=== PATIENT | male | born 1940 | race Two or more races ===

== ENCOUNTER 2017-11-29 07:30 | Outpatient (CLI) | payer OTHER ==
[~2017-11-29 07:30] MED LIST: ATACAND4 MG PO; INTESTINEX1 CA1 PO; LEVAQUIN750 MG PO; NORVIR100 M1 PO; OXYC1TAB9 PO; PREZISTA800 MG PO; PROTONIX40 MG PO; TAMS0.4C PO; TIVICAY50 MG PO
== END 2017-11-29 08:40 | disposition home or self-care (01) ==
LOC: NUCLEAR 07:30
DX: I11.9 Hypertensive heart disease without heart failure (principal); R07.89 Other chest pain; R94.31 Abnormal electrocardiogram [ECG] [EKG]
CPT/HCPCS: 78452; 93017; A9505

== ENCOUNTER → 2017-12-12 | Outpatient (CLI) | payer OTHER | END | disposition home or self-care (01) | LOC: LAB 06:25 | DX: B20 Human immunodeficiency virus [HIV] disease (principal); C18.9 Malignant neoplasm of colon, unspecified ==

== ENCOUNTER → 2017-12-13 | Outpatient (CLI) | payer OTHER | END | disposition home or self-care (01) | LOC: PPH VACUNA 10:32 | DX: Z23 Encounter for immunization (principal) ==

== ENCOUNTER → 2017-12-27 | Outpatient (CLI) | payer OTHER | END | disposition home or self-care (01) | LOC: NUCLEAR 08:28 | DX: I20.1 Angina pectoris with documented spasm (principal) | CPT/HCPCS: 78452; 93017; A9500 ==

== ENCOUNTER 2018-01-10 10:42 | Outpatient (CLI) | payer OTHER | END 2018-01-10 10:50 | disposition home or self-care (01) | LOC: LAB 10:42 | DX: N39.0 Urinary tract infection, site not specified (principal) ==

== ENCOUNTER 2018-02-12 07:55 | Day surgery (SDC) | payer OTHER | END 2018-02-12 13:10 | disposition home or self-care (01) | LOC: AMB-ENDOS 07:55 | DX: K64.8 Other hemorrhoids (principal) ==

== ENCOUNTER 2018-09-03 09:16 | Outpatient (CLI) | payer OTHER | END 2018-09-03 09:37 | disposition home or self-care (01) | LOC: LAB 09:16 | DX: D50.0 Iron deficiency anemia secondary to blood loss (chronic) (principal); E78.2 Mixed hyperlipidemia; E03.8 Other specified hypothyroidism; N39.0 Urinary tract infection, site not specified; Z12.11 Encounter for screening for malignant neoplasm of colon; K62.5 Hemorrhage of anus and rectum; R10.84 Generalized abdominal pain; E55.9 Vitamin D deficiency, unspecified; E11.29 Type 2 diabetes mellitus with other diabetic kidney complication; E51.8 Other manifestations of thiamine deficiency ==

== ENCOUNTER 2019-02-04 08:27 | Outpatient (CLI) | payer OTHER | END 2019-02-04 08:53 | disposition home or self-care (01) | LOC: LAB 08:27 | DX: B20 Human immunodeficiency virus [HIV] disease (principal); Z11.4 Encounter for screening for human immunodeficiency virus [HIV]; D64.89 Other specified anemias; I10 Essential (primary) hypertension; E11.9 Type 2 diabetes mellitus without complications; E78.00 Pure hypercholesterolemia, unspecified; N39.0 Urinary tract infection, site not specified; E03.8 Other specified hypothyroidism; E11.69 Type 2 diabetes mellitus with other specified complication; E11.29 Type 2 diabetes mellitus with other diabetic kidney complication; N40.0 Benign prostatic hyperplasia without lower urinary tract symptoms; Z12.31 Encounter for screening mammogram for malignant neoplasm of breast; R19.5 Other fecal abnormalities; E55.9 Vitamin D deficiency, unspecified ==

== ENCOUNTER 2019-02-13 10:36 | Outpatient (CLI) | payer OTHER | END 2019-02-13 11:01 | disposition home or self-care (01) | LOC: NUCLEAR 10:36 | DX: R07.89 Other chest pain (principal); I20.9 Angina pectoris, unspecified | CPT/HCPCS: 78452; 93017; A9500; J0153 ==

== ENCOUNTER 2019-04-02 14:02 | Outpatient (CLI) | payer OTHER | END 2019-04-02 14:10 | disposition home or self-care (01) | LOC: RAD 14:02 | DX: S87.01XA Crushing injury of right knee, initial encounter (principal) ==

== ENCOUNTER 2019-04-07 08:58 | Outpatient (CLI) | payer OTHER | END 2019-04-07 09:13 | disposition home or self-care (01) | LOC: NUCLEAR 08:58 | DX: K81.1 Chronic cholecystitis (principal) | CPT/HCPCS: 78227; A9537 ==

== ENCOUNTER 2020-04-07 11:45 | Outpatient (CLI) | payer OTHER | END 2020-04-07 13:11 | disposition home or self-care (01) | LOC: LAB 11:45 | PROVIDERS: ATTEND Internal Medicine | DX: E11.69 Type 2 diabetes mellitus with other specified complication (principal); N39.0 Urinary tract infection, site not specified; E03.8 Other specified hypothyroidism; E78.00 Pure hypercholesterolemia, unspecified; R19.5 Other fecal abnormalities; N40.0 Benign prostatic hyperplasia without lower urinary tract symptoms; B20 Human immunodeficiency virus [HIV] disease ==

== ENCOUNTER 2021-04-13 07:51 | Outpatient (CLI) | payer OTHER | END 2021-04-13 08:13 | disposition home or self-care (01) | LOC: LAB 07:51 | PROVIDERS: ATTEND Internal Medicine | DX: D50.0 Iron deficiency anemia secondary to blood loss (chronic) (principal); N39.0 Urinary tract infection, site not specified; E11.69 Type 2 diabetes mellitus with other specified complication; E78.00 Pure hypercholesterolemia, unspecified; E03.8 Other specified hypothyroidism; B20 Human immunodeficiency virus [HIV] disease; N40.1 Benign prostatic hyperplasia with lower urinary tract symptoms ==

== ENCOUNTER 2022-01-11 10:28 | Outpatient (CLI) | payer OTHER | END 2022-01-11 13:22 | disposition home or self-care (01) | LOC: LAB 10:28 | PROVIDERS: ATTEND Internal Medicine | DX: D48.9 Neoplasm of uncertain behavior, unspecified (principal); M15.0 Primary generalized (osteo)arthritis; D64.9 Anemia, unspecified; E11.9 Type 2 diabetes mellitus without complications; E78.00 Pure hypercholesterolemia, unspecified; N39.0 Urinary tract infection, site not specified; E03.8 Other specified hypothyroidism; R80.8 Other proteinuria; Z12.11 Encounter for screening for malignant neoplasm of colon; R19.5 Other fecal abnormalities ==

== ENCOUNTER 2022-12-21 12:50 | Outpatient (CLI) | payer OTHER | END 2022-12-21 13:40 | disposition home or self-care (01) | LOC: LAB 12:50 | PROVIDERS: ATTEND Internal Medicine | DX: D64.9 Anemia, unspecified (principal); E11.9 Type 2 diabetes mellitus without complications; E78.00 Pure hypercholesterolemia, unspecified; E03.8 Other specified hypothyroidism; N39.0 Urinary tract infection, site not specified; R19.5 Other fecal abnormalities; Z12.11 Encounter for screening for malignant neoplasm of colon; E55.9 Vitamin D deficiency, unspecified; N40.0 Benign prostatic hyperplasia without lower urinary tract symptoms ==

== ENCOUNTER 2022-12-27 09:59 | Outpatient (CLI) | payer OTHER | END 2022-12-27 10:11 | disposition home or self-care (01) | LOC: LAB 09:59 | PROVIDERS: ATTEND Internal Medicine | DX: B20 Human immunodeficiency virus [HIV] disease (principal); R53.1 Weakness ==

== ENCOUNTER 2023-01-01 09:44 | Outpatient (CLI) | payer OTHER | END 2023-01-01 09:46 | disposition home or self-care (01) | LOC: TOM 09:44 | PROVIDERS: ATTEND Internal Medicine | DX: R10.0 Acute abdomen (principal) ==

== ENCOUNTER 2024-06-25 09:49 | Outpatient (CLI) | payer OTHER ==
[2024-06-25 10:54] LABS: HEMATOCRIT 47.5 % (39.0-48.0); HEMOGLOBIN 16.2 g/dL (13-16.00); MEAN CELL VOLUME 90.2 fL (80.0-100.00); MEAN CORPUSCULAR HEMOGLOBIN 30.8 pg (27.00-32.0); MEAN CORPUSCULAR HGB CONC 34.1 g/dl (32.0-36.0); PLATELET COUNT 248 K/uL (150-450); RED BLOOD COUNT 5.27 M/uL (4.00-6.00); RED CELL DISTRIBUTION WIDTH 14.4 % (11.5-14.5)
[2024-06-25 11:13] LABS: PH,URINE 5.5 (5.0-8.0); URINE APPEARANCE Clear; URINE BILIRRUBIN Negative (NEGATIVE); URINE BLOOD Negative; URINE COLOR Yellow; URINE KETONE Negative (NEGATIVE); URINE LEUKOCYTE Negative; URINE NITRATE Negative; URINE PROTEIN 30 (NEGATIVE); URINE UROBILINOGEN 0.2 E.U./dl
[2024-06-25 11:17] LABS: URINE BACTERIA 229.3 uL (0.0-1933); URINE EPITHELIAL CELLS 14.9 uL (0.0-38.8); URINE WBC 10.3 uL (0.0-23.2)
[2024-06-25 11:40] LABS: URINE GLUCOSE 250 MG/DL (NEGATIVE); URINE RBC 1.5 uL (0.0-20.8)
[2024-06-25 11:41] LABS: URINE CAST 0.61 uL (0.0-1.40)
[2024-06-25 11:44] LABS: ALBUMIN 4.2 gm/dL (3.4-5.0); BILIRUBIN TOTAL 0.62 mg/dL (0.3-1.2); CALCIUM 9.8 mg/dL (8.5-10.1); CHOL HDL RATIO 3.8 (0-5.0); CREATININE SERUM 1.32 mg/dL (0.70-1.30); GFR 52.06; GLOBULINA 4.3 G/DL (2.4-3.5); POTASSIUM 4.54 mEq/L (3.5-5.1); TOTAL PROTEIN 8.5 gm/dL (6.4-8.2); TSH 1.29 uIU/mL (0.358-3.74)
== END 2024-06-25 10:00 | disposition home or self-care (01) ==
LOC: LAB 09:49
PROVIDERS: ATTEND Internal Medicine
DX: D64.9 Anemia, unspecified (principal); E11.9 Type 2 diabetes mellitus without complications; E78.00 Pure hypercholesterolemia, unspecified; N39.0 Urinary tract infection, site not specified; E03.8 Other specified hypothyroidism; Z12.11 Encounter for screening for malignant neoplasm of colon; E55.9 Vitamin D deficiency, unspecified

== ENCOUNTER 2024-08-19 21:07 | Emergency (ER) | payer OTHER ==
[~2024-08-19] VITALS: Ht 177.8 cm; Wt 63.5 kg
[2024-08-19] MEDS ORDERED: 0.9 % SODIUM CHLORIDE 1,000 ML IV SCH (22:00)
[2024-08-19 23:23] LABS: PH,URINE 5.5 (5.0-8.0); URINE APPEARANCE Cloudy; URINE BILIRRUBIN Negative (NEGATIVE); URINE BLOOD Moderate; URINE COLOR Dark Yellow; URINE GLUCOSE Negative (NEGATIVE); URINE KETONE Trace (NEGATIVE); URINE LEUKOCYTE Negative; URINE NITRATE Negative; URINE UROBILINOGEN 0.2 E.U./dl
[2024-08-19 23:29] LABS: URINE BACTERIA 15.1 uL (0.0-1933); URINE CAST 5.64 uL (0.0-1.40); URINE WBC 9.5 uL (0.0-23.2)
[2024-08-19 23:31] LABS: HEMATOCRIT 49.7 % (39.0-48.0); MEAN CELL VOLUME 90.1 fL (80.0-100.00); MEAN CORPUSCULAR HEMOGLOBIN 30.8 pg (27.00-32.0); MEAN CORPUSCULAR HGB CONC 34.2 g/dl (32.0-36.0); PLATELET COUNT 132 K/uL (150-450); RED BLOOD COUNT 5.52 M/uL (4.00-6.00); RED CELL DISTRIBUTION WIDTH 14.5 % (11.5-14.5)
[2024-08-19 23:41] LABS: CALCIUM 9.3 mg/dL (8.5-10.1); CREATININE SERUM 2.37 mg/dL (0.70-1.30); GFR 26.43; POTASSIUM 4.54 mEq/L (3.5-5.1)
[2024-08-19 23:49] LABS: URINE PROTEIN 100 (NEGATIVE); URINE RBC 1.3 uL (0.0-20.8)
[2024-08-20] MEDS ORDERED: FAMOTIDINE/PF 20 MG/2 ML VIAL IV PUSH STA (02:28)
[2024-08-20] MEDS ORDERED: 0.9 % SODIUM CHLORIDE 1,000 ML IV ONE (07:00)
[2024-08-20 08:08] LABS: HEMATOCRIT 48.3 % (39.0-48.0); HEMOGLOBIN 16.5 g/dL (13-16.00); MEAN CELL VOLUME 90.1 fL (80.0-100.00); MEAN CORPUSCULAR HEMOGLOBIN 30.8 pg (27.00-32.0); MEAN CORPUSCULAR HGB CONC 34.2 g/dl (32.0-36.0); PLATELET COUNT 134 K/uL (150-450); RED BLOOD COUNT 5.36 M/uL (4.00-6.00); RED CELL DISTRIBUTION WIDTH 14.2 % (11.5-14.5)
[2024-08-20 11:24] LABS: ALBUMIN 3.8 gm/dL (3.4-5.0); BILIRUBIN TOTAL 0.57 mg/dL (0.3-1.2); CALCIUM 8.9 mg/dL (8.5-10.1); CREATININE SERUM 1.69 mg/dL (0.70-1.30); GFR 39.04; POTASSIUM 4.14 mEq/L (3.5-5.1); TOTAL PROTEIN 7.8 gm/dL (6.4-8.2)
== END 2024-08-20 12:42 | disposition home or self-care (01) ==
LOC: ER 21:07
PROVIDERS: Emergency Medicine; General Practice
DX: R53.1 Weakness (principal); Z88.0 Allergy status to penicillin; I10 Essential (primary) hypertension; E86.0 Dehydration; Z20.822 Contact with and (suspected) exposure to COVID-19
CPT/HCPCS: 36415; 71045; 96365; 96366; 99283; J3490; J7030

== ENCOUNTER → 2024-08-27 09:18 | Outpatient (CLI) | payer OTHER | END | disposition home or self-care (01) | LOC: LAB 09:18 | PROVIDERS: ATTEND Internal Medicine | DX: E29.1 Testicular hypofunction (principal); B20 Human immunodeficiency virus [HIV] disease ==

== ENCOUNTER 2024-09-09 14:12 | Outpatient (CLI) | payer OTHER ==
[2024-09-09 15:05] LABS: PH,URINE 5.5 (5.0-8.0); URINE APPEARANCE Turbid; URINE BILIRRUBIN Negative (NEGATIVE); URINE BLOOD Moderate; URINE COLOR Yellow; URINE GLUCOSE Negative (NEGATIVE); URINE KETONE Negative (NEGATIVE); URINE LEUKOCYTE Large; URINE NITRATE Negative; URINE UROBILINOGEN 0.2 E.U./dl
[2024-09-09 15:06] LABS: URINE EPITHELIAL CELLS 2.6 uL (0.0-38.8); URINE RBC 83.8 uL (0.0-20.8)
[2024-09-09 15:29] LABS: URINE BACTERIA > 9821.5 uL (0.0-1933); URINE PROTEIN 100 (NEGATIVE); URINE WBC > 5548.3 uL (0.0-23.2)
[2024-09-09 15:30] LABS: URINE CAST 0.15 uL (0.0-1.40)
== END 2024-09-09 14:20 | disposition home or self-care (01) ==
LOC: LAB 14:12
PROVIDERS: ATTEND Internal Medicine
DX: N39.0 Urinary tract infection, site not specified (principal)

== ENCOUNTER 2025-03-16 18:55 | Inpatient (IN) | payer OTHER ==
[~2025-03-16] VITALS: Ht 180.3 cm; Wt 63.5 kg
[2025-03-16] MEDS ORDERED: VAZALORE325 MG (19:34)
[2025-03-16] MEDS ORDERED: ACID CONTROLLER20 MG (19:35)
[2025-03-16] MEDS ORDERED: MACROBID 100 M100 MG (19:35)
[2025-03-16] MEDS ORDERED: BIKTARVY 50-201 EACH (19:35)
[2025-03-16] MEDS ORDERED: FAMOTIDINE/PF 20 MG in 0.9 % SODIUM CHLORIDE 8 ML IV PUSH STA (20:00)
[2025-03-16] MEDS ORDERED: ONDANSETRON HCL 2 MG/ML VIAL IV ONE (20:00)
[2025-03-16] MEDS ORDERED: FAMOTIDINE/PF 20 MG/2 ML VIAL ONE (20:07)
[2025-03-16] MEDS ORDERED: ONDANSETRON HCL 2 MG/ML VIAL ONE (20:07)
[2025-03-16] MEDS ORDERED: 0.9 % SODIUM CHLORIDE 1,000 ML IV SCH ×2 (20:15→23:00)
[2025-03-16 20:32] LABS: BASO % 0.9 % (0.1-1.2); EOS # 0.25 (0.04-0.54); EOS % 3.7 % (0.7-7.0); HEMATOCRIT 45.9 % (40.1-51.0); HEMOGLOBIN 16.3 g/dL (13.7-17.5); LYMPH # 1.62 (1.18-3.74); LYMPH % 23.8 % (19.3-53.1); MEAN CORPUSCULAR HEMOGLOBIN 30.4 pg (25.6-32.2); MONO # 0.93 (0.24-0.82); NEUT # 3.93 (1.56-6.13); NEUT % 57.6 % (34.0-71.1); PLATELET COUNT 208 K/uL (163-369); RED BLOOD COUNT 5.36 M/uL (4.63-6.08); RED CELL DISTRIBUTION WIDTH 13.6 % (11.6-14.4)
[2025-03-16 20:38] LABS: MONO % 13.7 % (4.7-12.5)
[2025-03-16 20:54] LABS: ALBUMIN 3.5 gm/dL (3.4-5.0); BILIRUBIN TOTAL 1.56 mg/dL (0.3-1.2); BILIRUBIN,CONJUGATED 0.37 mg/dL (0.0-0.2); BILIRUBIN,UNCONJUGATED 1.19 mg/dL (0.0-0.6); CREATININE SERUM 1.28 mg/dL (0.70-1.30); GFR 53.8; GLOBULINA 4.2 G/DL (2.4-3.5); POTASSIUM 3.83 mEq/L (3.5-5.1); TOTAL PROTEIN 7.7 gm/dL (6.4-8.2)
[2025-03-16] MEDS ORDERED: NITROGLYCERIN 250 ML IV SCH (21:30)
[2025-03-16] MEDS ORDERED: TICAGRELOR 90 MG TABLET PO ONE (21:30)
[2025-03-16] MEDS ORDERED: NITROGLYCERIN IN 5 % DEXTROSE 50 MG/250 ML BOTTLE IV ONE (21:35)
[2025-03-16] MEDS ORDERED: ATORVASTATIN CALCIUM 40 MG TABLET PO SCH (22:50)
[2025-03-16] MEDS ORDERED: FAMOTIDINE/PF 20 MG in 0.9 % SODIUM CHLORIDE 8 ML IV PUSH SCH (22:51)
[2025-03-16] MEDS ORDERED: ENOXAPARIN SODIUM 60 MG/0.6 ML SYRINGE SUBCUTANEO SCH (22:51)
[2025-03-16] MEDS ORDERED: ACETAMINOPHEN 500 MG GEL..CAP PO PRN (23:00)
[2025-03-16] MEDS ORDERED: ASPIRIN 325 MG TABLET PO ONE (23:00)
[2025-03-16] MEDS ORDERED: ASPIRIN 325 MG TABLET.EC PO ONE (23:58)
[2025-03-16] MEDS ORDERED: ENOXAPARIN SODIUM 60 MG/0.6 ML SYRINGE SUBCUTANEO ONE (23:58)
[2025-03-17 00:31] VITALS: BP 146/78; O2SAT 98
[2025-03-17 02:43] LABS: D DIMER 1.4 MG/L; PARTIAL THROMBOPLASTIN TIME 31.5 SECONDS (22.0-34.0)
[2025-03-17 02:54] LABS: INR 1.12; PROTHROMBIN TIME 12.1 SECONDS (9.0-11.5)
[2025-03-17 03:00] VITALS: BP 127/65; O2SAT 98
[2025-03-17] MEDS ORDERED: TICAGRELOR 90 MG TABLET PO ONE (04:54)
[2025-03-17] MEDS ORDERED: TICAGRELOR 90 MG TABLET PO SCH (05:00)
[2025-03-17] MEDS ORDERED: NITROGLYCERIN IN 5 % DEXTROSE 250 ML IV SCH (06:45)
[2025-03-17 07:24] LABS: TSH 0.663 uIU/mL (0.358-3.74)
[2025-03-17] MEDS ORDERED: ASPIRIN 81 MG TAB.CHEW PO SCH (09:00)
[2025-03-17] MEDS ORDERED: LOSARTAN POTASSIUM 25 MG TABLET PO SCH (09:00)
[2025-03-17 11:24] VITALS: BP 95/66; O2SAT 96
[2025-03-17] MEDS ORDERED: 0.9 % SODIUM CHLORIDE 1,000 ML IV SCH (12:30)
[2025-03-17 16:20] VITALS: BP 132/59; O2SAT 97
[2025-03-17] MEDS ORDERED: METOPROLOL SUCCINATE 25 MG TAB.SR.24H PO SCH (17:53)
[2025-03-17] MEDS ORDERED: CHLORHEXIDINE GLUCONATE 120 ML BOTTLE TOP ONE (22:07)
[2025-03-17 23:00] VITALS: BP 202/98; O2SAT 96
[2025-03-18] VITALS (16 sets, daily range): BP systolic 89–169; BP diastolic 54–85; O2SAT 93–99
[2025-03-18 00:19] LABS: BASO % 0.4 % (0.1-1.2); EOS # 0.02 (0.04-0.54); EOS % 0.3 % (0.7-7.0); HEMATOCRIT 48.1 % (40.1-51.0); LYMPH # 0.53 (1.18-3.74); LYMPH % 6.8 % (19.3-53.1); MEAN CORPUSCULAR HEMOGLOBIN 29.7 pg (25.6-32.2); MONO # 0.62 (0.24-0.82); NEUT # 6.56 (1.56-6.13); NEUT % 84.1 % (34.0-71.1); PLATELET COUNT 243 K/uL (163-369); RED BLOOD COUNT 5.73 M/uL (4.63-6.08); RED CELL DISTRIBUTION WIDTH 13.5 % (11.6-14.4)
[2025-03-18] MEDS ORDERED: CHLORHEXIDINE GLUCONATE 120 ML BOTTLE TOP ONE (07:47)
[2025-03-18] MEDS ORDERED: IRBESARTAN 150 MG TABLET PO SCH (14:03)
[2025-03-18] MEDS ORDERED: ENOXAPARIN SODIUM 60 MG/0.6 ML SYRINGE SUBCUTANEO ONE (20:53)
[2025-03-19] VITALS (8 sets, daily range): BP systolic 107–171; BP diastolic 65–84; O2SAT 95–100
[2025-03-19 06:17] LABS: BASO % 1.3 % (0.1-1.2); EOS # 0.18 (0.04-0.54); EOS % 4.8 % (0.7-7.0); HEMATOCRIT 45.8 % (40.1-51.0); LYMPH # 0.65 (1.18-3.74); LYMPH % 17.5 % (19.3-53.1); MEAN CORPUSCULAR HEMOGLOBIN 29.7 pg (25.6-32.2); MONO # 0.33 (0.24-0.82); MONO % 8.9 % (4.7-12.5); NEUT % 67.2 % (34.0-71.1); PLATELET COUNT 224 K/uL (163-369); RED BLOOD COUNT 5.39 M/uL (4.63-6.08)
[2025-03-19 07:04] LABS: ALBUMIN 3.3 gm/dL (3.4-5.0); BILIRUBIN TOTAL 7.12 mg/dL (0.3-1.2); CALCIUM 8.9 mg/dL (8.5-10.1); CREATININE SERUM 1.16 mg/dL (0.70-1.30); GFR 60.28; GLOBULINA 3.7 G/DL (2.4-3.5); MAGNESIUM 2.4 mg/dL (1.8-2.4); PHOSPHOROUS 2.4 mg/dL (2.5-4.9); POTASSIUM 4.04 mEq/L (3.5-5.1)
[2025-03-19] MEDS ORDERED: ENALAPRILAT DIHYDRATE 1.25 MG/ML VIAL IV SCH (12:00)
[2025-03-19] MEDS ORDERED: LABETALOL HCL 100 MG/20 ML ML IV PRN (15:30)
[2025-03-19] MEDS ORDERED: ISOSORBIDE MONONITRATE 30 MG TABLET PO NR (16:00)
[2025-03-19] MEDS ORDERED: AMLODIPINE BESYLATE 2.5 MG TABLET PO SCH (17:00)
[2025-03-20 04:00] VITALS: BP 146/85; O2SAT 98
[2025-03-20 07:14] LABS: BASO % 1.2 % (0.1-1.2); EOS # 0.16 (0.04-0.54); EOS % 3.1 % (0.7-7.0); HEMATOCRIT 42.7 % (40.1-51.0); HEMOGLOBIN 14.7 g/dL (13.7-17.5); LYMPH # 1.01 (1.18-3.74); LYMPH % 19.5 % (19.3-53.1); MEAN CORPUSCULAR HEMOGLOBIN 30.1 pg (25.6-32.2); MONO # 0.47 (0.24-0.82); MONO % 9.1 % (4.7-12.5); NEUT # 3.47 (1.56-6.13); NEUT % 66.9 % (34.0-71.1); PLATELET COUNT 234 K/uL (163-369); RED BLOOD COUNT 4.88 M/uL (4.63-6.08); RED CELL DISTRIBUTION WIDTH 14.5 % (11.6-14.4)
[2025-03-20 07:25] VITALS: BP 126/72; O2SAT 99
[2025-03-20 07:58] LABS: ALBUMIN 3.1 gm/dL (3.4-5.0); BILIRUBIN TOTAL 3.53 mg/dL (0.3-1.2); CALCIUM 8.9 mg/dL (8.5-10.1); CREATININE SERUM 1.18 mg/dL (0.70-1.30); GFR 59.1; GLOBULINA 3.4 G/DL (2.4-3.5); MAGNESIUM 2.4 mg/dL (1.8-2.4); PHOSPHOROUS 2.7 mg/dL (2.5-4.9); POTASSIUM 4.34 mEq/L (3.5-5.1); TOTAL PROTEIN 6.5 gm/dL (6.4-8.2)
[2025-03-20] MEDS ORDERED: ISOSORBIDE MONONITRATE 30 MG TABLET PO SCH (09:00)
[2025-03-20 12:03] VITALS: BP 129/81; O2SAT 96
[2025-03-20] MEDS ORDERED: ENALAPRILAT DIHYDRATE 1.25 MG/ML VIAL IV PRN (13:55)
[2025-03-20 16:07] VITALS: BP 128/79; O2SAT 95
[2025-03-20 21:00] VITALS: BP 151/84; O2SAT 100
[2025-03-21] VITALS (7 sets, daily range): BP systolic 147–176; BP diastolic 81–97; O2SAT 95–99
[2025-03-21] MEDS ORDERED: METOPROLOL SUCCINATE 25 MG TAB.SR.24H PO SCH (17:00)
[2025-03-22 04:00] VITALS: BP 180/98; O2SAT 97
[2025-03-22 07:36] VITALS: BP 170/98; O2SAT 100
[2025-03-22 07:50] LABS: EOS # 0.11 (0.04-0.54); EOS % 1.4 % (0.7-7.0); HEMATOCRIT 47.8 % (40.1-51.0); HEMOGLOBIN 16.2 g/dL (13.7-17.5); LYMPH # 1.43 (1.18-3.74); LYMPH % 18.5 % (19.3-53.1); MEAN CORPUSCULAR HEMOGLOBIN 29.8 pg (25.6-32.2); MONO # 0.73 (0.24-0.82); MONO % 9.4 % (4.7-12.5); NEUT # 5.36 (1.56-6.13); NEUT % 69.3 % (34.0-71.1); PLATELET COUNT 266 K/uL (163-369); RED BLOOD COUNT 5.44 M/uL (4.63-6.08); RED CELL DISTRIBUTION WIDTH 14.6 % (11.6-14.4)
[2025-03-22 08:08] LABS: ALBUMIN 3.6 gm/dL (3.4-5.0); BILIRUBIN TOTAL 1.82 mg/dL (0.3-1.2); BILIRUBIN,CONJUGATED 0.97 mg/dL (0.0-0.2); BILIRUBIN,UNCONJUGATED 0.85 mg/dL (0.0-0.6); CALCIUM 9.5 mg/dL (8.5-10.1); CREATININE SERUM 1.31 mg/dL (0.70-1.30); GFR 52.38; MAGNESIUM 2.3 mg/dL (1.8-2.4); POTASSIUM 4.44 mEq/L (3.5-5.1); TOTAL PROTEIN 7.7 gm/dL (6.4-8.2)
[2025-03-22 12:00] VITALS: BP 150/78; O2SAT 99
[2025-03-22 15:12] VITALS: BP 131/82; O2SAT 96
[2025-03-22 20:15] VITALS: BP 133/84; O2SAT 98
[2025-03-22 23:44] VITALS: BP 146/87; O2SAT 98
[2025-03-23] VITALS (7 sets, daily range): BP systolic 108–184; BP diastolic 64–99; O2SAT 96–99
[2025-03-23] MEDS ORDERED: RINGERS SOLUTION,LACTATED 1,000 ML IV SCH (11:15)
[2025-03-23] MEDS ORDERED: AMLODIPINE BESYLATE 5 MG TABLET PO NR (12:00)
[2025-03-23] MEDS ORDERED: AMLODIPINE BESYLATE 5 MG TABLET PO SCH (17:00)
[2025-03-24] VITALS (9 sets, daily range): BP systolic 136–169; BP diastolic 71–93; O2SAT 93–98
[2025-03-24 07:13] LABS: BASO % 0.4 % (0.1-1.2); EOS # 0.01 (0.04-0.54); EOS % 0.1 % (0.7-7.0); HEMATOCRIT 42.7 % (40.1-51.0); HEMOGLOBIN 14.6 g/dL (13.7-17.5); LYMPH # 0.43 (1.18-3.74); LYMPH % 5.3 % (19.3-53.1); MEAN CORPUSCULAR HEMOGLOBIN 29.8 pg (25.6-32.2); MONO # 0.38 (0.24-0.82); MONO % 4.6 % (4.7-12.5); NEUT # 7.31 (1.56-6.13); NEUT % 89.2 % (34.0-71.1); PLATELET COUNT 241 K/uL (163-369); RED CELL DISTRIBUTION WIDTH 14.5 % (11.6-14.4)
[2025-03-24 08:24] LABS: ALBUMIN 3.2 gm/dL (3.4-5.0); BILIRUBIN TOTAL 2.31 mg/dL (0.3-1.2); CALCIUM 9.3 mg/dL (8.5-10.1); CREATININE SERUM 1.46 mg/dL (0.70-1.30); GFR 46.22; GLOBULINA 3.8 G/DL (2.4-3.5); MAGNESIUM 2.1 mg/dL (1.8-2.4); PHOSPHOROUS 2.3 mg/dL (2.5-4.9); POTASSIUM 3.75 mEq/L (3.5-5.1)
[2025-03-24] MEDS ORDERED: AMLODIPINE BESYLATE 5 MG TABLET PO SCH ×2 (09:00→17:00)
[2025-03-24 09:12] LABS: TOXOPLASMA GONDII IGG < 3.0 IU/mL (0.0-7.1); TOXOPLASMA GONDII IGM < 3.0 AU/mL (0.0-7.9)
[2025-03-25] VITALS (7 sets, daily range): BP systolic 119–169; BP diastolic 68–83; O2SAT 35–100
[2025-03-25 06:49] LABS: BASO % 0.2 % (0.1-1.2); EOS # 0.01 (0.04-0.54); EOS % 0.2 % (0.7-7.0); HEMATOCRIT 49.9 % (40.1-51.0); HEMOGLOBIN 17.1 g/dL (13.7-17.5); LYMPH # 0.42 (1.18-3.74); LYMPH % 9.4 % (19.3-53.1); MEAN CORPUSCULAR HEMOGLOBIN 30.1 pg (25.6-32.2); MONO # 0.46 (0.24-0.82); MONO % 10.3 % (4.7-12.5); NEUT # 3.56 (1.56-6.13); NEUT % 79.7 % (34.0-71.1); PLATELET COUNT 263 K/uL (163-369); RED BLOOD COUNT 5.69 M/uL (4.63-6.08); RED CELL DISTRIBUTION WIDTH 14.2 % (11.6-14.4)
[2025-03-25 07:48] LABS: ALBUMIN 3.4 gm/dL (3.4-5.0); BILIRUBIN TOTAL 2.02 mg/dL (0.3-1.2); CALCIUM 9.7 mg/dL (8.5-10.1); CREATININE SERUM 1.29 mg/dL (0.70-1.30); GFR 53.32; GLOBULINA 4.3 G/DL (2.4-3.5); POTASSIUM 4.2 mEq/L (3.5-5.1); TOTAL PROTEIN 7.7 gm/dL (6.4-8.2)
[2025-03-25] MEDS ORDERED: ATORVASTATIN CALCIUM 40 MG TABLET PO SCH (09:00)
[2025-03-25] MEDS ORDERED: FINASTERIDE 5 MG TABLET PO SCH (12:24)
[2025-03-25 14:42] LABS: PH,URINE 6.5 (5.0-8.0); URINE APPEARANCE Turbid; URINE BILIRRUBIN Negative (NEGATIVE); URINE BLOOD Moderate; URINE COLOR Yellow; URINE KETONE Trace (NEGATIVE); URINE LEUKOCYTE Large; URINE NITRATE Negative
[2025-03-25 14:46] LABS: URINE RBC 33.5 uL (0.0-20.8); URINE WBC 3281.5 uL (0.0-23.2)
[2025-03-25 14:50] LABS: URINE BACTERIA > 9821.2 uL (0.0-1933); URINE CAST 1.32 uL (0.0-1.40); URINE EPITHELIAL CELLS 1.1 uL (0.0-38.8); URINE GLUCOSE 500 MG/DL (NEGATIVE); URINE PROTEIN 100 (NEGATIVE)
[2025-03-25] MEDS ORDERED: levoFLOXacin IN DEXTROSE 5 % 5 MG/ML PIGGYBAG IV STA (15:16)
[2025-03-25] MEDS ORDERED: IRBESARTAN 150 MG TABLET PO SCH (17:00)
[2025-03-26] VITALS (8 sets, daily range): BP systolic 105–148; BP diastolic 64–73; O2SAT 90–100
[2025-03-26 06:46] LABS: BILIRUBIN TOTAL 2.2 mg/dL (0.3-1.2); CALCIUM 9.2 mg/dL (8.5-10.1); CREATININE SERUM 1.01 mg/dL (0.70-1.30); GFR 70.72; GLOBULINA 3.9 G/DL (2.4-3.5); POTASSIUM 3.71 mEq/L (3.5-5.1); TOTAL PROTEIN 6.9 gm/dL (6.4-8.2)
[2025-03-26] MEDS ORDERED: TAMSULOSIN HCL 0.4 MG CAP PO SCH (09:00)
[2025-03-27] VITALS: O2SAT 99
[2025-03-27 00:01] VITALS: BP 103/62; O2SAT 99
[2025-03-27 04:00] VITALS: O2SAT 90
[2025-03-27 06:43] LABS: BASO % 0.3 % (0.1-1.2); EOS # 0.07 (0.04-0.54); HEMATOCRIT 40.2 % (40.1-51.0); HEMOGLOBIN 13.9 g/dL (13.7-17.5); LYMPH # 0.99 (1.18-3.74); LYMPH % 13.5 % (19.3-53.1); MONO # 0.65 (0.24-0.82); MONO % 8.9 % (4.7-12.5); NEUT # 5.58 (1.56-6.13); NEUT % 75.9 % (34.0-71.1); PLATELET COUNT 248 K/uL (163-369); RED BLOOD COUNT 4.64 M/uL (4.63-6.08); RED CELL DISTRIBUTION WIDTH 13.4 % (11.6-14.4)
[2025-03-27 07:30] VITALS: BP 122/73; O2SAT 96
[2025-03-27 07:40] LABS: ALBUMIN 2.7 gm/dL (3.4-5.0); BILIRUBIN TOTAL 1.82 mg/dL (0.3-1.2); CALCIUM 8.8 mg/dL (8.5-10.1); CREATININE SERUM 1.13 mg/dL (0.70-1.30); GFR 62.13; GLOBULINA 3.7 G/DL (2.4-3.5); MAGNESIUM 2.2 mg/dL (1.8-2.4); POTASSIUM 3.72 mEq/L (3.5-5.1); TOTAL PROTEIN 6.4 gm/dL (6.4-8.2)
[2025-03-27 08:12] LABS: PROSTATIC SPECIFIC ANTIGEN 15.2 NG/ML (0.010-4.00)
[2025-03-27] MEDS ORDERED: levoFLOXacin IN DEXTROSE 5 % 5 MG/ML PIGGYBAG IV SCH (09:00)
[2025-03-27 09:06] VITALS: O2SAT 98
[2025-03-27] MEDS ORDERED: POTASSIUM PHOS,M-BASIC-D-BASIC 3 MM/ML VIAL IV ONE (11:00)
[2025-03-27] MEDS ORDERED: LEVOFLOXACIN750 MG PO (11:55)
[2025-03-27] MEDS ORDERED: TAMS0.4C PO (11:55)
[2025-03-27] MEDS ORDERED: AVAPRO150 MG PO (11:55)
[2025-03-27] MEDS ORDERED: ISOSORBIDE MONO30 MG PO (11:55)
[2025-03-27] MEDS ORDERED: BIKTARVY 50-201 EACH PO (11:55)
[2025-03-27] MEDS ORDERED: INTESTINEX680 M1 PO (11:55)
[2025-03-27] MEDS ORDERED: AMLODIPINE BESYL5 MG PO (11:55)
[2025-03-27] MEDS ORDERED: NAPH,MB-DB/K PH,MBDB 1 PKT PACKET PO SCH (12:00)
[2025-03-27 12:28] VITALS: O2SAT 90
[2025-03-27 19:08] LABS: LOG 10 1.778 (.); hiv 1 60 (.)
[2025-03-28] MEDS ORDERED: levoFLOXacin IN DEXTROSE 5 % 5 MG/ML PIGGYBAG IV SCH (09:00)
== END 2025-03-27 22:38 | disposition home or self-care (01) | DRG 280 ==
LOC: ER 18:55 → ICU-2 22:55 → ICU 03-19 14:51 → SURG 03-23 17:39
PROVIDERS: General Practice; Internal Medicine; Internal Medicine Infectious Disease; ADMIT Internal Medicine; ATTEND Internal Medicine
PROC: BW21ZZZ Computerized Tomography (CT Scan) of Abdomen and Pelvis (ICD-10-PCS; principal; 2025-03-16)
PROC: B246ZZZ Ultrasonography of Right and Left Heart (ICD-10-PCS; 2025-03-16)
PROC: BW28ZZZ Computerized Tomography (CT Scan) of Head (ICD-10-PCS; 2025-03-18)
PROC: BW40ZZZ Ultrasonography of Abdomen (ICD-10-PCS; 2025-03-19)
PROC: BF37ZZZ Magnetic Resonance Imaging (MRI) of Pancreas (ICD-10-PCS; 2025-03-20)
PROC: 4A12X4Z Monitoring of Cardiac Electrical Activity, External Approach (ICD-10-PCS; 2025-03-23)
DX: I21.4 Non-ST elevation (NSTEMI) myocardial infarction (principal); I61.1 Nontraumatic intracerebral hemorrhage in hemisphere, cortical; B20 Human immunodeficiency virus [HIV] disease; N17.8 Other acute kidney failure; E86.0 Dehydration; I11.9 Hypertensive heart disease without heart failure; R33.8 Other retention of urine
CPT/HCPCS: 70545